=== PATIENT | male | born 1985 | race American Indian/Alaskan Native ===

== ENCOUNTER 2019-03-04 12:58 | Emergency (ER) | payer BC, OTHER ==
--- NOTE | 2019-03-04 13:16 | Emergency Department Report ---
Chief Complaint: Neck Pain/Injury Stated Complaint: NECK PAIN Time Seen by Provider: 03/04/19 13:11 - HPI History of Present Illness: This is a 34 y.o. M. that presents to the ER with posterior neck pain x 7 months. States pain as unbearable this morning while dressing for work. Reports a popping sound with movement. Current smoker - Exam Vital Signs: Vital Signs 03/04/19 13:10 Temperature 98.7 F Pulse Rate 85 Respiratory 19 Rate Blood Pressure 149/104 [Left] O2 Sat by Pulse 99 Oximetry MSE screening note: Focused history and physical exam performed. Due to findings the following was ordered: This initial assessment/diagnostic orders/clinical plan/treatment(s) is/are subject to change based on patient's health status, clinical progression and re- assessment by fellow clinical providers in the ED. Further treatment and workup at subsequent clinical providers discretion. Patient/guardians urged not to elope from the ED as their condition may be serious if not clinically assessed and managed. Initial orders include: 1- Patient sent to [facility] for further evaluation and treatment 2- XR C-spine ED Disposition for MSE Condition: Stable
[2019-03-04 13:17] VITALS: BP 149/104
--- NOTE | 2019-03-04 15:02 | Emergency Department Report ---
ED Neck Pain/Injury HPI - General Chief Complaint: Neck Pain/Injury Stated Complaint: NECK PAIN Time Seen by Provider: 03/04/19 13:11 Mode of arrival: Ambulatory Limitations: No Limitations - History of Present Illness Initial Comments: 34-year-old male with neck pain times seven months. Denies any numbness or weakness to upper extremities. Patient denies any trauma. Denies fever. MD Complaint: neck pain -: month(s) (7) Severity: mild Quality: aching Consistency: intermittent Improves With: other (stretching) Worsens With: none Context: unknown Associated Symptoms: denies: headache, fever, numbness, tingling, weakness, difficulty walking, nausea, vomiting - Related Data Previous Rx's Medication Instructions Recorded Last Taken Type Ibuprofen [Motrin 600 MG tab] 600 mg PO Q8H PRN #30 tablet 01/22/16 Unknown Rx Penicillin Vk [Veetids TAB] 500 mg PO QID #40 tablet 01/22/16 Unknown Rx Naproxen [Naprosyn] 500 mg PO BID #20 tablet 03/04/19 Unknown Rx methOCARBAMOL [Robaxin TAB] 500 mg PO Q8HR PRN #20 tablet 03/04/19 Unknown Rx Allergies Allergy/AdvReac Type Severity Reaction Status Date / Time No Known Allergies Allergy Verified 03/04/19 13:00 ED Review of Systems ROS: Stated complaint: NECK PAIN Other details as noted in HPI Comment: All other systems reviewed and negative Constitutional: denies: chills, fever Musculoskeletal: as per HPI Neurological: denies: headache, weakness, numbness, paresthesias ED Past Medical Hx - Past Medical History Previous Medical History?: No - Surgical History Past Surgical History?: No - Social History Smoking Status: Never Smoker Substance Use Type: Alcohol - Medications Home Medications: Home Medications Medication Instructions Recorded Confirmed Last Taken Type Ibuprofen [Motrin 600 MG tab] 600 mg PO Q8H PRN #30 tablet 01/22/16 Unknown Rx Penicillin Vk [Veetids TAB] 500 mg PO QID #40 tablet 01/22/16 Unknown Rx Naproxen [Naprosyn] 500 mg PO BID #20 tablet 03/04/19 Unknown Rx methOCARBAMOL [Robaxin TAB] 500 mg PO Q8HR PRN #20 tablet 03/04/19 Unknown Rx ED Physical Exam - General Limitations: No Limitations General appearance: alert, in no apparent distress - Head Head exam: Present: atraumatic, normocephalic - Eye Eye exam: Present: normal appearance - ENT ENT exam: Present: mucous membranes moist - Neck Neck exam: Present: normal inspection, full ROM. Absent: tenderness, meningismus - Respiratory Respiratory exam: Present: normal lung sounds bilaterally. Absent: respiratory distress - Cardiovascular Cardiovascular Exam: Present: regular rate, normal rhythm - GI/Abdominal GI/Abdominal exam: Absent: distended - Extremities Exam Extremities exam: Present: normal inspection - Neurological Exam Neurological exam: Present: alert, oriented X3, CN II-XII intact. Absent: motor sensory deficit (BUE strength 5/5; sensation intact) - Psychiatric Psychiatric exam: Present: normal affect, normal mood - Skin Skin exam: Present: warm, dry, intact, normal color ED Course Vital Signs 03/04/19 13:10 Temperature 98.7 F Pulse Rate 85 Respiratory 19 Rate Blood Pressure 149/104 [Left] O2 Sat by Pulse 99 Oximetry ED Medical Decision Making - Radiology Data Radiology results: report reviewed, image reviewed - Medical Decision Making - neck pain x 7 mos - neuro intact - ROM normal - nontender to palpation - xrays normal - outpt f/u advised - return precautions given - Differential Diagnosis muscle strain Critical care attestation.: If time is entered above; I have spent that time in minutes in the direct care of this critically ill patient, excluding procedure time. ED Disposition Clinical Impression: Acute cervical myofascial strain Disposition: - TO HOME OR SELFCARE Is pt being admited?: No Condition: Stable Instructions: Muscle Strain (ED) Prescriptions: Naproxen [Naprosyn] 500 mg PO BID #20 tablet methOCARBAMOL [Robaxin TAB] 500 mg PO Q8HR PRN #20 tablet PRN Reason: Muscle Spasm Referrals: [facility] PONDIRVINE MD ROD [Primary Care Provider] - 3-5 Days AURE ESTRADA MD [Staff Physician] - 3-5 Days Time of Disposition: 15:03
--- NOTE | 2019-03-04 15:05 | XRay Report ---
AP AND LATERAL CERVICAL SPINE: History: Posterior neck pain. The vertebral bodies are well mineralized and normal in alignment and vertebral height with well preserved interspace distances. Minimal anterior spurring is noted at C5-6 and C6-7. The visualized portions of the posterior elements are normal. IMPRESSION: Unremarkable cervical spine films.
== END 2019-03-04 15:26 | disposition home or self-care (01) ==
LOC: ED 12:58
DX: S16.1XXA Strain of muscle, fascia and tendon at neck level, initial encounter (principal); X58.XXXA Exposure to other specified factors, initial encounter; Y93.89 Activity, other specified; Y92.89 Other specified places as the place of occurrence of the external cause; Y99.8 Other external cause status
CPT/HCPCS: 72040

== ENCOUNTER 2019-03-18 17:44 | Emergency (ER) | payer BC ==
[2019-03-18 17:49] VITALS: BP 150/101
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
== END 2019-03-18 20:27 | disposition home or self-care (01) ==
LOC: ED 17:44
DX: M54.2 Cervicalgia (principal); M79.10 Myalgia, unspecified site
CPT/HCPCS: 99282

== ENCOUNTER 2019-12-05 10:13 | Outpatient (CLI) | payer BC ==
--- NOTE | 2019-12-05 12:49 | Magnetic Resonance Report ---
MR cervical spine wo con INDICATION / CLINICAL INFORMATION: 34 years Male; M54.2 Cervicalgia. TECHNIQUE: Multisequence, multiplanar images of the cervical spine were obtained. COMPARISON: None available. FINDINGS: CRANIOCERVICAL JUNCTION:No significant abnormality. ALIGNMENT: No significant abnormality. VERTEBRAE:Grossly normal marrow signal and vertebral body height for age. Hemangioma noted at C3, wh ich is of no clinical significance. VISUALIZED SPINAL CORD: No significant abnormality. INTERVERTEBRAL DISCS: Desiccation seen at C5-6 and C6-7. [id number] ANALYSIS: C2-3: No significant abnormality. C3-4: Minimal foraminal narrowing on the right from uncinate hypertrophy. C4-5: No significant abnormality. C5-6: Mild disc bulge. Mild facet hypertrophy bilaterally. Mild foraminal narrowing seen. C6-7: Broad-based left paracentral/lateral recess disc protrusion. Mild foraminal narrowing left from uncinate and facet hypertrophy. Minimal noted on the right. There is minimal flattening of the left anterior hemicord. No signs of cord edema. C7-T1: Facet hypertrophy noted bilaterally, without significant sequela. PARASPINAL SOFT TISSUES: No significant abnormality. ADDITIONAL FINDINGS: None. IMPRESSION: 1. Degenerative changes of the cervical spine as described above. Most marked findings appear to be a t C6-7, followed by C5-6. Signer Name: Geoff Jarvis MD, III Signed: 12/05/2019 12:45 PM Workstation Name: [id number][id number]
== END 2019-12-05 10:14 | disposition home or self-care (01) ==
LOC: MRI 10:13
PROVIDERS: ATTEND Orthopaedic Surgery
DX: M47.812 Spondylosis without myelopathy or radiculopathy, cervical region (principal); M48.02 Spinal stenosis, cervical region; M50.222 Other cervical disc displacement at C5-C6 level; D18.09 Hemangioma of other sites
CPT/HCPCS: 72141